=== PATIENT | male | born 1935 | race Caucasian/White ===

== ENCOUNTER 2019-01-08 09:18 | Inpatient (IN) | payer OTHER ==
[~2019-01-08] VITALS: Ht 162.6 cm; Wt 73.6 kg
[2019-01-08 09:23] VITALS: Ht 162.6 cm; Wt 73.6 kg
[2019-01-08 09:57] LABS: BASOPHIL % 0.2 % (0-2); PLATELET COUNT 238 x10^3mcL (130-400); RED CELL DISTRIBUTION WIDTH 13.1 % (11.5-14.5)
[2019-01-08 10:08] LABS: CALCIUM 9.7 mg/dL (8.5-10.1); CARBON DIOXIDE 29.6 mmol/L (21-32); CHLORIDE SERUM 106 mmol/L (98-107); CREATININE SERUM 0.7 mg/dL (0.7-1.3); GLUCOSE SERUM 110 mg/dL (74-106); SODIUM SERUM 144 mmol/L (136-145)
[2019-01-08 10:12] LABS: ALBUMIN 3.7 g/dL (3.4-5.0); ALKALINE PHOSPHATASE 108 U/L (46-116); ALT/SGPT 29 U/L (16-63); AST/SGOT 22 U/L (15-37); BILIRUBIN TOTAL 0.58 mg/dL (0.20-1.00); TOTAL PROTEIN, SERUM 7.4 g/dL (6.4-8.2)
[2019-01-08 16:35] LABS: CHOLESTEROL/HDL RATIO 4.1; MAGNESIUM 1.9 mg/dL (1.8-2.4)
[2019-01-08 16:42] VITALS: BP 151/84
[2019-01-08 17:14] VITALS: BP 151/84
[2019-01-08 18:02] LABS: microscopic required? NO
[2019-01-08 18:23] LABS: UA SPECIFIC GRAVITY <=1.005 (1.005-1.035); urine erythrocyte NEGATIVE (NEGATIVE)
[2019-01-08 18:36] LABS: AMPHETAMINE QUAL UR NONE DETECTED (See below)
[2019-01-08 21:16] VITALS: BP 115/92
[2019-01-09 05:42] VITALS: BP 117/79
[2019-01-09 06:48] LABS: CALCIUM 10.3 mg/dL (8.5-10.1); CARBON DIOXIDE 31.1 mmol/L (21-32); CHLORIDE SERUM 103 mmol/L (98-107); CREATININE SERUM 0.9 mg/dL (0.7-1.3); GLUCOSE SERUM 144 mg/dL (74-106); POTASSIUM SERUM 4.6 mmol/L (3.5-5.1); SODIUM SERUM 139 mmol/L (136-145)
[2019-01-09 07:13] LABS: BASOPHIL % 0.1 % (0-2); PLATELET COUNT 257 x10^3mcL (130-400); RED CELL DISTRIBUTION WIDTH 13.4 % (11.5-14.5)
[2019-01-09 07:55] VITALS: BP 130/80
[2019-01-09 12:53] VITALS: BP 123/76
[2019-01-09 13:07] VITALS: BP 130/80
== END 2019-01-09 14:40 | disposition home or self-care (01) | DRG 190 ==
LOC: ED 09:18 → DU 15:27
PROVIDERS: ADMIT Internal Medicine
DX: J44.1 Chronic obstructive pulmonary disease with (acute) exacerbation (principal); I50.43 Acute on chronic combined systolic (congestive) and diastolic (congestive) heart failure; I11.0 Hypertensive heart disease with heart failure; I16.0 Hypertensive urgency; I05.0 Rheumatic mitral stenosis; I25.10 Atherosclerotic heart disease of native coronary artery without angina pectoris; E04.1 Nontoxic single thyroid nodule; Z87.891 Personal history of nicotine dependence; Z85.46 Personal history of malignant neoplasm of prostate; Z68.28 Body mass index [BMI] 28.0-28.9, adult
CPT/HCPCS: 83880; 90658; 90732; J1200; J1940; J2920; J7620; J7626; Q0092; Q9967

== ENCOUNTER 2019-01-27 10:06 | Emergency (ER) | payer OTHER ==
[~2019-01-27] VITALS: Ht 162.6 cm; Wt 75.3 kg
[2019-01-27 10:10] VITALS: Ht 162.6 cm; Wt 75.3 kg
[2019-01-27 11:09] LABS: BASOPHIL % 0.4 % (0-2); PLATELET COUNT 209 x10^3mcL (130-400); RED CELL DISTRIBUTION WIDTH 13.9 % (11.5-14.5)
[2019-01-27 11:12] LABS: CALCIUM 9.5 mg/dL (8.5-10.1); CARBON DIOXIDE 29.2 mmol/L (21-32); CHLORIDE SERUM 107 mmol/L (98-107); CREATININE SERUM 0.7 mg/dL (0.7-1.3); GLUCOSE SERUM 105 mg/dL (74-106); POTASSIUM SERUM 4.2 mmol/L (3.5-5.1); SODIUM SERUM 143 mmol/L (136-145)
[2019-01-27 11:17] LABS: ALKALINE PHOSPHATASE 110 U/L (46-116); ALT/SGPT 26 U/L (16-63); AST/SGOT 20 U/L (15-37); BILIRUBIN TOTAL 0.54 mg/dL (0.20-1.00); TOTAL PROTEIN, SERUM 7.1 g/dL (6.4-8.2)
[2019-01-27 11:18] LABS: ALBUMIN 3.3 g/dL (3.4-5.0)
[2019-01-27 12:21] LABS: microscopic required? YES; urine erythrocyte NEGATIVE (NEGATIVE)
[2019-01-27 13:18] VITALS: BP 120/53
== END 2019-01-27 13:37 | disposition home or self-care (01) ==
LOC: ED 10:06
PROVIDERS: Emergency Medicine
DX: J44.1 Chronic obstructive pulmonary disease with (acute) exacerbation (principal); Z85.46 Personal history of malignant neoplasm of prostate
CPT/HCPCS: 36415; 87804; J7613; Q0092

== ENCOUNTER 2019-03-10 08:23 | Inpatient (IN) | payer OTHER ==
[~2019-03-10] VITALS: Ht 162.6 cm; Wt 72.6 kg
[2019-03-10 08:29] VITALS: Ht 162.6 cm; Wt 72.6 kg
--- NOTE | 2019-03-10 08:45 | NUR ---
OXYGEN TURNED OFF PER DR BERNSTEIN FOR ABG BLOOD DRAW
--- NOTE | 2019-03-10 08:50 | NUR ---
EKG IN PROGRESS
--- NOTE | 2019-03-10 08:50 | NUR ---
MSE COMPLETED BY DR BERNSTEIN
--- NOTE | 2019-03-10 08:53 | NUR ---
RT AT BEDSIDE FOR ABG BLOOD DRAW
--- NOTE | 2019-03-10 08:59 | NUR ---
LAB BLOOD DRAW AT BEDSIDE
[2019-03-10 09:30] LABS: ALBUMIN 3.4 g/dL (3.4-5.0); ALKALINE PHOSPHATASE 92 U/L (46-116); ALT/SGPT 40 U/L (16-63); AST/SGOT 56 U/L (15-37); BILIRUBIN TOTAL 1.19 mg/dL (0.20-1.00); CALCIUM 9.7 mg/dL (8.5-10.1); CARBON DIOXIDE 27.8 mmol/L (21-32); CHLORIDE SERUM 101 mmol/L (98-107); CHOLESTEROL 157 mg/dL (<200); CREATININE SERUM 0.7 mg/dL (0.7-1.3); GLUCOSE SERUM 116 mg/dL (74-106); HDL CHOLESTEROL 52 mg/dL (40-60); POTASSIUM SERUM 4.1 mmol/L (3.5-5.1); SODIUM SERUM 138 mmol/L (136-145); TOTAL PROTEIN, SERUM 6.9 g/dL (6.4-8.2)
--- NOTE | 2019-03-10 09:32 | NUR ---
PT SITTING UPRIGHT IN BED IN NO DISTRESS. VSS ON FULL CM WILL CONTINUE TO MONITOR
[2019-03-10 09:42] LABS: PLATELET COUNT 223 x10^3mcL (130-400); RED CELL DISTRIBUTION WIDTH 14.1 % (11.5-14.5)
[2019-03-10 10:05] LABS: BASOPHIL % 0 % (0-2)
--- NOTE | 2019-03-10 10:40 | NUR ---
SPOKE TO JEOVANNY FROM [employer] FOR EVAL FOR POSSIBLE ADMISSION.
[2019-03-10 11:58] VITALS: BP 127/67
--- NOTE | 2019-03-10 12:08 | NUR ---
REPORT GIVEN TO NATANAEL ANGEL RESUMING CARE OF PT IN TELE FLOOR
--- NOTE | 2019-03-10 12:25 | NUR ---
RECEIVED PT FROM ED NURSE, TRANSPORTED VIA BED. PT AAOX4, AMBULATORY W/O ASSISTANCE, GAIT AND BALANCE STEADY. REPORTED DULL PAIN TO BOTH LEGS. COMFORT MEASURES IMPLEMENTED. RESP EVEN AND UNLABORED ON NC 2L/MIN, EQUAL CHEST EXPANSION. EXPIRATORY WHEEZES ON AUSCULTATION. DENIES CHEST PAIN OR SOB, BUT REPORTS PRODUCTIVE COUGH W/ BLACKISH PHLEGM, NONE NOTED AT THIS TIME. ON TELE 13 SHOWING SINUS TACH W/ PVCS, HR: 103. IV TO LAC W/ NO SIGNS OF INFILTRATION. FINISHING IV ZITHROMAX, IVF INFUSING WELL. BED IN LOWEST POSITION AND CALL LIGHT WITHIN REACH. WILL CONTINUE TO MONITOR.
--- NOTE | 2019-03-10 12:25 | NUR ---
PT TRANSPORTED TO TELE FLOOR VIA GURNEY ON PORTABLE CM BY TIANA ANGEL AND [id number] EMT. PT IN NO DISTRESS. NATANAEL ANGEL RESUMING CARE OF PT
[2019-03-10 13:48] VITALS: BP 118/52
--- NOTE | 2019-03-10 15:25 | NUR ---
PT RESTING IN BED WATCHING TV. AAOX4. NO ACUTE DISTRESS NOTED. DENIES CHEST PAIN OR SOB AT THIS TIME. RESP EVEN AND UNLABORED ON NC 2L/MIN. IV TO LAC W/ NO SIGNS OF INFILTRATION, IVF INFUSING WELL. BED IN LOWEST POSITION AND CALL LIGHT WITHIN REACH. WILL ENDORSE TO ONCOMING NURSE.
[2019-03-10 16:58] VITALS: BP 126/83
[2019-03-10 19:30] VITALS: BP 122/68
--- NOTE | 2019-03-10 19:41 | NUR ---
AWAKE AND ALERT, ORIENTED TO NAME, PLACE, TIME AND SITUATION. SPEECH CLEAR AND APPROPRIATE. BREATHING EVEN AND UNLABORED ON 2LPM OF O2 VIA NC. NO WHEEZES HEARD AT THIS TIME. LUNG SOUNDS CLEAR. ABLE TO COMPLETE SENTENCES WITHOUT DIFFICULTY. STATED EXPECTORATES YELLOW SPUTUM. SINUS RHYTHM ON TELE. DENIES HAVING PAIN. SALINE LOCK TO LEFT AC FLUSHED WELL WITH 5ML NS. HOB ELEVATED 45 DEG.
--- NOTE | 2019-03-10 20:37 | NUR ---
URINE SPECIMEN SENT TO LAB
[2019-03-10 21:04] LABS: UA SPECIFIC GRAVITY <=1.005 (1.005-1.035); microscopic required? YES; urine erythrocyte 1+ (NEGATIVE)
--- NOTE | 2019-03-10 21:52 | NUR ---
AWAKE AND ALERT, WATCHING TV. HOB ELEVATED 40 DEG. BREATHING UNLABORED ON 2LPM OF O2 VIA NC. SINUS RHYTHM ON TELE. CALL LIGHT WITHIN EASY REACH.
--- NOTE | 2019-03-10 23:18 | NUR ---
STATED COUGH IS BOTHERING HIM KEEPING HIM AWAKE. ASKED FOR COUGH SYRUP. CALLED DR. ECHOLS WHO ORDERED PHENERGAN DM 10ML Q 4HRS PRN FOR COUGH.
--- NOTE | 2019-03-10 23:45 | NUR ---
PHENERGAN DM NOT AVAILABLE DURING NIGHT HOURS. ADMINISTRATOR OF HOME HEALTH CALLED, STATED HAD CHANGE OF RHYTHM TO BIGEMINY. VITAL SIGNS TAKEN, BP 143/78, DC 84, RR 18, O2 SAT 94% ON 2LPM OF O2 VIA NC. DENIES HAVING CHEST PAIN, CHEST DISCOMFORT, NAUSEA, LIGHTHEADINESS. CALLED DR. ECHOLS, INFORMED HIM OF CHANGE OF HEART RHYTHM, PT ASYMPTOMATIC. HE ORDERED EKG. ALSO INFORMED DR. ECHOLS PHENERGAN DM NOT AVAILABLE. HE ORDERED ROBITUSSIN DM 5ML PO Q 4HRS PRN FOR COUGH.
--- NOTE | 2019-03-10 23:49 | NUR ---
CN HOWER OF CHANGE IN HEART RHYTHM
[2019-03-10 23:56] VITALS: BP 143/78
--- NOTE | 2019-03-10 23:58 | NUR ---
EKG DONE READS SINUS RHYTHM W/ PVCS. PT REMAINS ASYMPTOMATIC.
--- NOTE | 2019-03-11 01:13 | NUR ---
EYES CLOSED, HOB KEPT ELEVATED 30 DEG. NO COUGHING NOTED AT THIS TIME. CALL LIGHT WITHIN EASY REACH. SINUS RHYTHM WITH PVCS NOTED.
--- NOTE | 2019-03-11 02:55 | NUR ---
EYES CLOSED, BREATHING UNLABORED. NO COUGHING NOTED AT THIS TIME. HOB KEPT ELEVATED 40 DEG. CALL LIGHT WITHIN EASY REACH.
[2019-03-11 04:58] VITALS: BP 144/87
[2019-03-11 05:06] VITALS: BP 111/66; BP 144/87
[2019-03-11 06:55] LABS: PLATELET COUNT 239 x10^3mcL (130-400); RED CELL DISTRIBUTION WIDTH 13.8 % (11.5-14.5)
[2019-03-11 07:07] LABS: BASOPHIL % 0 % (0-2)
--- NOTE | 2019-03-11 07:12 | NUR ---
AWAKE AND ALERT, WATCHING TV. STATED HE IS COMFORTABLE BREATHING WELL. STILL ON 2LPM OF O2 VIA NC. ENDORSED TO NURSE FRANK. CALL LIGHT WITHIN EASY REACH.
[2019-03-11 07:23] LABS: CALCIUM 10.5 mg/dL (8.5-10.1); CARBON DIOXIDE 24.9 mmol/L (21-32); CHLORIDE SERUM 104 mmol/L (98-107); CREATININE SERUM 0.6 mg/dL (0.7-1.3); GLUCOSE SERUM 165 mg/dL (74-106); POTASSIUM SERUM 4.3 mmol/L (3.5-5.1); SODIUM SERUM 139 mmol/L (136-145)
--- NOTE | 2019-03-11 07:25 | NUR ---
AAO X4.DENIES ANY PAIN/DISCOMFORT.LUNGS CLEAR.DENIES ANY SOB AT THE MOMENT.ON SR ON THE MONITOR.WITH OCCASSIONAL PVC'S.HR=81.IV SALINE LOCKED.CALL LIGHT WITHIN REACH INSTRUCTED TO CALL FOR ANY PAIN/DISCOMFORT.WILL CONTINUE TO MONITOR PT.
[2019-03-11 10:18] VITALS: BP 133/77
[2019-03-11 14:36] VITALS: BP 127/75
[2019-03-11 18:08] VITALS: BP 130/76
--- NOTE | 2019-03-11 18:10 | NUR ---
NO SIGNIFICANT CHANGE NOTED.WILL ENDORSE TO NEXT SHIFT.
--- NOTE | 2019-03-11 19:20 | NUR ---
REC'D PT FROM DAY NURSE. PT RESTING IN BED. AAOX4, SPEECH CLEAR, FOLLOWS COMMANDS. TELE 13. DENIES CP, DIZZINESS, OR PALPITATIONS. DENIES RESP DISTRESS OR SOB. BREATHING EVEN/UNLABORED ON 2L O2 VIA NC. C/O PRODUCTIVE COUGH WITH SCANT YELLOW SPUTUM. ABD SOFT/DISTENDED. NOTED UMBILICAL HERNIA, REDUCABLE. DENIES ABD PAIN, TENDERNESS, OR N/V. VOIDING FREELY. AMBULATORY. SKIN INTACT. IV TO LFA FLUSHED AND PATENT, SITE WNL. CALL LIGHT WITHIN REACH, BED AT LOWEST POSITION. WILL CONTINUE TO MONITOR.
[2019-03-11 19:58] VITALS: BP 142/82
--- NOTE | 2019-03-11 21:20 | NUR ---
ROBITUSSIN GIVEN PER ORDER FOR COMPLAINTS OF COUGH. WILL MONITOR FOR RELIEF.
--- NOTE | 2019-03-11 22:39 | NUR ---
REC'D CALL FROM TELE. PT HAD 4 BEAT RUN OF VTACH. PT RESTING IN BED WATCHING TV. ASYMPTOMATIC. DENIES ANY CP, PALPITATIONS, OR SOB. TELE 13 CURRENTLY READING NSR WITH PVC'S. HR 83. CHARGE NURSE MADE AWARE. WILL CONTINUE TO MONITOR.
--- NOTE | 2019-03-11 22:48 | NUR ---
DR. ECHOLS MADE AWARE OF 4 BEAT RUN OF [facility], ASYMPTOMATIC. NO CHANGES IN ORDERS AT THIS TIME.
--- NOTE | 2019-03-12 01:09 | NUR ---
PT RESTING IN BED WITH EYES CLOSED. LAYING ON L SIDE. NO SIGNS OF DISTRESS NOTED. BREATHING EVEN/UNLABORED ON 2L O2 VIA NC. CALL LIGHT WITHIN REACH, BED AT LOWEST POSITION. WILL CONTINUE TO MONITOR.
--- NOTE | 2019-03-12 05:17 | NUR ---
PT AWAKE AND RESTING IN BED WATCHING TV. C/O COUGH. ROBITUSSIN GIVEN PER ORDER. DENIES RESP DISTRESS OR SOB. BREATHING EVEN/UNLABORED ON 2L O2 VIA NC, SPO2 95%. NC REMOVED, SPO2 93-94%. NO SIGNIFICANT CHANGES DURING SHIFT. CALL LIGHT WITHIN REACH, BED AT LOWEST POSITION. WILL ENDORSE TO DAY NURSE.
[2019-03-12 05:21] VITALS: BP 120/70
[2019-03-12 05:41] LABS: BASOPHIL % 0.1 % (0-2); PLATELET COUNT 300 x10^3mcL (130-400); RED CELL DISTRIBUTION WIDTH 14.2 % (11.5-14.5)
[2019-03-12 05:58] LABS: CALCIUM 10.6 mg/dL (8.5-10.1); CHLORIDE SERUM 102 mmol/L (98-107); CREATININE SERUM 0.7 mg/dL (0.7-1.3); GLUCOSE SERUM 145 mg/dL (74-106); POTASSIUM SERUM 4.2 mmol/L (3.5-5.1); SODIUM SERUM 139 mmol/L (136-145)
--- NOTE | 2019-03-12 07:20 | NUR ---
RECEIVED PATIENT FROM JEANNE HOGAN, PATIENT IN BED. NO COMPLAINTS OF PAIN. DENIES COUGH AT THIS TIME. ASKED ABOUT PLAN OF CARE TODAY, WILL FU Tarun KUMAR WHEN HE COMES IN. CALL LIGHT IN REACH AT THIS TIME.
[2019-03-12 09:28] VITALS: BP 136/89
--- NOTE | 2019-03-12 09:29 | NUR ---
NOTIFIED BY GUT PULLER JOANN THAT PATIENT IS HAVING RUNS OF TRIGEMINY, BIGEMINY, AND NON SUSTAINING V-TACH. NOTIFIED CHARGE NURSE TESSIE. PATIENT CURRENTLY IN BED WITH NO SIGNS OF CP, DIZZINESS. VS STABLE, HR 84, BP 115/78, O2 SAT 93% ON ROOM AIR. WILL NOTFIY DR BOSE. CALL LIGHT IN REACH.
--- NOTE | 2019-03-12 12:03 | NUR ---
PATIENT IN BED RESTING, NO COMPLAINTS OF PAIN OR SOB. WILL CONTINUE TO MONITOR AND WAIT FOR DR KUMAR TO SEE PATIENT. CALL LIGHT IN REACH.
[2019-03-12 12:27] VITALS: BP 136/74
--- NOTE | 2019-03-12 14:22 | NUR ---
DR GILLETTE IN TO SEE PATIENT AND UPDATE ABOUT PLAN OF CARE. DR GILLETTE NOTIFIED OF PATIENT PVCs & EPISODE OF V TACH. INFORMED PATIENT THAT HE MAY BE DISCHARGED TOMORROW DEPENDING ON TOMORROWS AM LABS. CALL LIGHT IN REACH, FRIEND AT BEDSIDE.
--- NOTE | 2019-03-12 15:53 | NUR ---
PATIENT IN BED AT THIS TIME, NO SIGNS OF PAIN OR SOB. CALL LIGHT IN REACH.
[2019-03-12 17:52] VITALS: BP 131/69
--- NOTE | 2019-03-12 18:54 | NUR ---
PATIENT IN BED RESTING, NO SIGNS OF PAIN OR SOB. WILL ENDORSE TO ONCOMING NURSE. CALL LIGHT IN REACH.
--- NOTE | 2019-03-12 19:10 | NUR ---
REC'D PT FROM DAY NURSE. PT RESTING IN BED. AAOX4, SPEECH CLEAR, FOLLOWS COMMANDS. TELE 13. DENIES CP, DIZZINESS, OR PALPITATIONS. DENIES RESP DISTRESS OR SOB. BREATHING EVEN/UNLABORED ON RA, SPO2 92%. REPORTS PRODUCTIVE COUGH AT TIMES WITH SCANT YELLOW SPUTUM. ABD SOFT/ROUND. UMBILICAL HERNIA NOTED, REDUCABLE. DENIES ABD PAIN, TENDERNESS, OR N/V. REPORTS LAST BM YESTERDAY. VOIDING FREELY USING URINAL. AMBULATORY. SKIN INTACT. IV TO LFA FLUSHED AND PATENT, SITE WNL. CALL LIGHT WITHIN REACH, BED AT LOWEST POSITION. WILL CONTINUE TO MONITOR.
[2019-03-12 19:50] VITALS: BP 130/81
--- NOTE | 2019-03-13 00:51 | NUR ---
PT RESTING IN BED WITH EYES CLOSED. LAYING ON L SIDE. NO SIGNS OF DISTRESS NOTED. BREATHING EVEN/UNLABORED ON RA. CALL LIGHT WITHIN REACH, BED AT LOWEST POSITION. WILL CONTINUE TO MONITOR.
--- NOTE | 2019-03-13 05:32 | NUR ---
PT RESTING IN BED AWAKE. C/O COUGH. ROBITUSSIN GIVEN PER ORDER. BREATHING EVEN/UNLABORED ON RA, SPO2 93%. NO OTHER COMPLAINTS. DENIES SOB OR CP. NO SIGNIFICANT CHANGES DURING SHIFT. CALL LIGHT WITHIN REACH, BED AT LOWEST POSITION. POSSIBLE D/C TODAY. WILL ENDORSE TO DAY NURSE.
[2019-03-13 05:59] VITALS: BP 141/76
[2019-03-13 07:02] LABS: PLATELET COUNT 313 x10^3mcL (130-400)
[2019-03-13 07:11] LABS: BASOPHIL % 0 % (0-2)
[2019-03-13 07:45] LABS: ALKALINE PHOSPHATASE 89 U/L (46-116); ALT/SGPT 223 U/L (16-63); AST/SGOT 111 U/L (15-37); BILIRUBIN TOTAL 0.3 mg/dL (0.20-1.00); CALCIUM 10.1 mg/dL (8.5-10.1); CARBON DIOXIDE 26.4 mmol/L (21-32); CHLORIDE SERUM 104 mmol/L (98-107); CREATININE SERUM 0.7 mg/dL (0.7-1.3); GLUCOSE SERUM 123 mg/dL (74-106); MAGNESIUM 2.2 mg/dL (1.8-2.4); PHOSPHOROUS 3.4 mg/dL (2.5-4.9); POTASSIUM SERUM 4.1 mmol/L (3.5-5.1); SODIUM SERUM 140 mmol/L (136-145)
--- NOTE | 2019-03-13 07:45 | NUR ---
PATIENT RESTING IN BED. NO ACUTE DISTRESS NOTED. PATIENT DENIES SOB, ON ROOM AIR. UMBILICAL HERNIA NOTED. PATIENT DENIES PAIN. TELE MONITOR IN PLACE. PATIENT IS AMBULATORY WITH NO ASSIST. IV TO LFA SALINE LOCK. NO S/S OF INFILTRATION. CALL LIGHT WITHIN REACH, BED IN LOW POSITION, WILL CONTINUE TO MONITOR FOR CHANGES.
[2019-03-13 07:50] LABS: ALBUMIN 2.9 g/dL (3.4-5.0)
--- NOTE | 2019-03-13 09:15 | NUR ---
PATIENT AMBULATING HALLWAYS, NO ACUTE DISTRESS NOTED. PATIENT DENIES SOB, STEADY GAIT NOTED. WILL CONTINUE TO MONITOR PATIENT.
[2019-03-13 09:36] VITALS: BP 152/86
--- NOTE | 2019-03-13 10:45 | NUR ---
PATIENT IV TO LFA BECAME IN FILTRATED, ERYTHEMA AND EDEMA NOTED. IV TO LFA REMOVED, CATH INTACT. ICE APPLIED TO REDUCE EDEMA. NEW IV INSERTED TO THE LEFT HAND 20G, IV SITE CDI, AND PATENT. CALL LIGHT WITHIN REACH, BED INLOW POSITION, WILL CONTINUE TO MONITOR PATIENT.
[2019-03-13 15:29] VITALS: BP 152/86
--- NOTE | 2019-03-13 16:30 | NUR ---
PATIENT WAS D/C HOME. PATIENT TAKEN DOWN VIA WHEELCHAIR BY RN. TELE MONITOR AND ARMBANDS REMOVED. IV TO LEFT HAND REMOVED, CATH INTACT. NO ACUTE DISTRESS NOTED THROUGHOUT SHIFT, PATIENT IS STABLE UPON D/C. PATIENT RECEIVED COPY OF D/C INSTRUCTIONS AND D/C PESCRIPTIONS. PATIENT UNDERSTANDS AND AGREES WITH D/C PLAN AND INSTRUCTIONS, INCLUDING MEDS AND FOLLOW UP CARE. PATIENT UNDERSTAND THAT HE IS TO FOLLOW UP WITH PCP TOMORROW 03/14/19. ALL QUESTIONS AND CONCERNS ADDRESSED. PATIENT TOOK ALL PERSONAL BELONGINGS.
== END 2019-03-13 16:45 | disposition home or self-care (01) | DRG 190 ==
LOC: ED 08:23 → DU 11:37
PROVIDERS: Emergency Medicine; Internal Medicine; ADMIT Internal Medicine
DX: J44.1 Chronic obstructive pulmonary disease with (acute) exacerbation (principal); J96.01 Acute respiratory failure with hypoxia; N18.6 End stage renal disease; I12.0 Hypertensive chronic kidney disease with stage 5 chronic kidney disease or end stage renal disease; N40.0 Benign prostatic hyperplasia without lower urinary tract symptoms; I25.10 Atherosclerotic heart disease of native coronary artery without angina pectoris; Z68.28 Body mass index [BMI] 28.0-28.9, adult; Z87.891 Personal history of nicotine dependence
CPT/HCPCS: 36600; 83880; 87804; J0456; J0696; J1644; J2920; J2930; J7050; J7613; J7620; J7626; J7644; Q0092

== ENCOUNTER 2019-03-14 09:55 | Inpatient (IN) | payer OTHER ==
[~2019-03-14] VITALS: Ht 165.1 cm; Wt 74.4 kg
--- NOTE | 2019-03-14 10:02 | NUR ---
PT SENT TO LOBBY TO WAIT FOR AVAILABLE BED. ALERT AND ORIENTED WITH NO DISTRESS NOTED
--- NOTE | 2019-03-14 10:22 | NUR ---
AWAKE ALERT OREINTED,SPEAKS IN FULL SENTENCES,WAS DISCHARGED FROM [facility] YESTERDAY, STATED ALL NIGHT HAD SOB WITH COUGHING C/O LT UPPER CHEST SHOULDER PAIN,
--- NOTE | 2019-03-14 10:43 | NUR ---
IV ESTABLISHED, BLOOD DRAWN ,RESP. THERAPIST IN ER FOR BREATHING TREATMENT,
[2019-03-14 10:53] LABS: BASOPHIL % 0.6 % (0-2); PLATELET COUNT 325 x10^3mcL (130-400); RED CELL DISTRIBUTION WIDTH 14.1 % (11.5-14.5)
[2019-03-14 11:14] LABS: CALCIUM 9.8 mg/dL (8.5-10.1); CARBON DIOXIDE 26.2 mmol/L (21-32); CHLORIDE SERUM 104 mmol/L (98-107); CHOLESTEROL 168 mg/dL (<200); CREATININE SERUM 0.8 mg/dL (0.7-1.3); HDL CHOLESTEROL 39 mg/dL (40-60); LIPASE 106 IU/L (73-393); POTASSIUM SERUM 4.2 mmol/L (3.5-5.1); SODIUM SERUM 139 mmol/L (136-145); T4(THYROXINE) 10.7 ug/dL (4.7-13.3)
--- NOTE | 2019-03-14 11:25 | NUR ---
PRE-TX PEAK FLOW 210 L/MIN, POST-TX PEAK FLOW 230 L/MIN.
[2019-03-14 11:32] LABS: GLUCOSE SERUM 112 mg/dL (74-106)
--- NOTE | 2019-03-14 12:15 | NUR ---
RESP. EASY SPEAKS FULL SENTENCES, PEDIATRIC ANESTHESIOLOGIST SR WITH OCCASIONAL PVCS LESS THAN BEFORE,
[2019-03-14 12:19] LABS: microscopic required? NO
[2019-03-14 12:42] LABS: AMPHETAMINE QUAL UR NONE DETECTED (See below)
[2019-03-14 14:23] LABS: UA SPECIFIC GRAVITY 1.015 (1.005-1.035)
[2019-03-14 14:24] LABS: urine erythrocyte NEGATIVE (NEGATIVE)
--- NOTE | 2019-03-14 14:33 | NUR ---
HAD HIS LUNCH AND TOLERATED, CLOTH CUTTING MACHINE OPERATOR IN SR WITH OCCASIONAL PVCS
--- NOTE | 2019-03-14 14:34 | NUR ---
RESPIRATION EASY NO DISTRESS NOTED
[2019-03-14 17:09] VITALS: BP 155/82
--- NOTE | 2019-03-14 17:12 | NUR ---
RECEIVED PT FROM ED VIA MAYNOR. ORIENTED PT TO ROOM AND SURROUNDINGS. IV NOTED TO RAC PATENT AND INTACT. TELE 22 PLACED ON PT READING SR WITH PVC. INSTRUCTED PT ON THE USE OF CALL LIGHT FOR ASSISTANCE. ENDORSED PT TO PRIMARY NURSE GAVIN
[2019-03-14 17:42] VITALS: BP 155/82
--- NOTE | 2019-03-14 19:48 | NUR ---
PT SEEN, SITTING UP ON THE CHAIR, ALERT AND ORIENTED, DENIES HEADACHE OR DIZZINESS, BREATHING EVEN AND UNLABORED, NO SOB, LUNG SOUNDS CLEAR BUT DIMINISHED AT BASE, ON ROOM AIR WITH NO RESP DISTRESS NOTED, ON TELE#22 NSR-PVC'S, DENIES CHEST PAIN, SL TO RAC, PULSES PALPABLE, NO EDEMA NOTED, AMBULATORY WITH STEADY GAIT, ABD ROUND AND SOFT WITH ACTIVE BS, NO BM AT THIS TIME, DENIES ABD PAIN, VOIDING FREELY, NO DISTRESS NOTED, WILL KEEP TO MONITOR.
--- NOTE | 2019-03-14 19:55 | NUR ---
PT TOLERATED TREATMENT WELL, CARE ENDORSED TO AUTOMOTIVE SHOP FOREMAN NURSE
[2019-03-14 21:40] VITALS: BP 110/76
--- NOTE | 2019-03-15 06:07 | NUR ---
PT AWAKE AND RESTING IN BED, SLEPT MOST OF NIGHT, BREATHING EVEN AND UNLABORED ON ROOM AIR WITH NO RESP DISTRESS NOTED, DENIES CHEST PAIN SINCE BEGINNING OF NIGHT, SL TO RAC, NO DISTRESS NOTED, WILL KEEP TO MONITOR.
[2019-03-15 06:25] VITALS: BP 128/83
[2019-03-15 06:26] LABS: BASOPHIL % 0.1 % (0-2); PLATELET COUNT 333 x10^3mcL (130-400); RED CELL DISTRIBUTION WIDTH 14.2 % (11.5-14.5)
[2019-03-15 06:40] LABS: CALCIUM 9.7 mg/dL (8.5-10.1); CARBON DIOXIDE 26.2 mmol/L (21-32); CHLORIDE SERUM 102 mmol/L (98-107); CREATININE SERUM 0.7 mg/dL (0.7-1.3); GLUCOSE SERUM 139 mg/dL (74-106); POTASSIUM SERUM 4.4 mmol/L (3.5-5.1); SODIUM SERUM 138 mmol/L (136-145)
--- NOTE | 2019-03-15 07:15 | NUR ---
BEDSIDE [facility], ALL QUESTIONS ANSWERED AND CONCERNS ADDRESSED.
--- NOTE | 2019-03-15 08:00 | NUR ---
AWAKE,ALERT AND ORIENTED DENIED ANY PAIN AT THIS TIME. CALL LIGHT W/ IN REACH NO ACUTE DISTRESS NOTED. ABLE TO AMBULATE IN THE BATHROOM AND VOIDING WELL WILL CONT. PLAN OF CARE.
[2019-03-15 08:13] VITALS: BP 131/60
[2019-03-15 12:03] VITALS: BP 134/65
--- NOTE | 2019-03-15 14:00 | NUR ---
PT. AMBULATED ARROUND IN OL[place] WAY NO ACUTE DISTRESS NOTED.
[2019-03-15 16:32] VITALS: BP 118/66
--- NOTE | 2019-03-15 17:04 | NUR ---
CALL NOTIFIED STRESS TEST RESULT-UNREMARKABLE STUDY WITHOUT PERFUSION DEFECTS TO SUGGEST INFARCT OR ISCHEMIA, EF 65%; PER CARDIO PATIENT MAY GO HOME FROM CARDIO STANDPOINT. NO ORDERS.
--- NOTE | 2019-03-15 18:52 | NUR ---
DENIES PAIN THE WHOLE DAY, NO ACUTE RESP. DISTRESS NOTED.CALL LIGHT W/ IN REACH.
--- NOTE | 2019-03-15 19:54 | NUR ---
RECEIVED PT FROM PREVIOUS SHIFT. AAO. MEDSURG. DENIES HEADACHE/DIZZINESS. DENIES PAIN. SPEECH CLEAR. DENIES CP. BREATHING E/U ON RA, DENIES SOB. NO S/S ACUTE DISTRESS. DENIES N/V. IV SITE CDI, SALINE-LOCKED. SKIN DRY/INTACT. PT AMBULATORY WITH STEADY GAIT. CALL LIGHR WITHIN REACH. WILL CONTINUE TO MONITOR.
[2019-03-15 21:21] VITALS: BP 112/69
--- NOTE | 2019-03-15 21:56 | NUR ---
PT AMBULATING AROUND HALLS. GAIT SLOW AND STEADY. NO S/S ACUTE DISTRESS. DENIES PAIN. WILL CONTINUE TO MONITOR.
--- NOTE | 2019-03-16 01:01 | NUR ---
PT RESTING IN BED WITH EYES CLOSED. EASILY AROUSABLE. NO INDICATIONS OF PAIN NOTED. RESPIRATIONS E/U. CALL LIGHT WITHIN REACH. WILL CONTINUE TO MONITOR.
[2019-03-16 05:42] VITALS: BP 138/66
--- NOTE | 2019-03-16 06:06 | NUR ---
PT HAD RESTFUL NIGHT. AROUSABLE TO VERBAL STIMULI. DENIES PAIN. NO S/S ACUTE DISTRESS. ALL NEEDS MET AND ATTENDED TO. NO CHANGES OVERNIGHT. CALL LIGHT WITHIN REACH. WILL ENDORSE CARE TO ONCOMING SHIFT.
[2019-03-16 06:31] LABS: PLATELET COUNT 343 x10^3mcL (130-400); RED CELL DISTRIBUTION WIDTH 14.2 % (11.5-14.5)
[2019-03-16 06:55] LABS: CALCIUM 10.3 mg/dL (8.5-10.1); CARBON DIOXIDE 29.1 mmol/L (21-32); CHLORIDE SERUM 103 mmol/L (98-107); CREATININE SERUM 0.8 mg/dL (0.7-1.3); GLUCOSE SERUM 129 mg/dL (74-106); POTASSIUM SERUM 4.8 mmol/L (3.5-5.1); SODIUM SERUM 141 mmol/L (136-145)
--- NOTE | 2019-03-16 07:14 | NUR ---
RECEIVED REPORT FROM JEFFERSON ANGEL. PT SLEEPING COMFORTABLY IN BED. IV TO RAC IS PATENT AND INTACT. NO REDNESS OR PAIN. TELE # [address] NO INDICATION OF CHEST PAIN. PT ON ROOM AIR. NO DISTRESS NOTED. ALL QUESTIONS AND CONCERNS ADDRESSED.
--- NOTE | 2019-03-16 09:04 | NUR ---
IN TO SEE PATIENT AND ADMINISTER MEDICATION (SEE eMAR). PT SITTING COMFORTABLY IN CHAIR. ALL NEEDS MET.
[2019-03-16 10:20] VITALS: BP 137/60
[2019-03-16 11:30] LABS: BAND NEUTROPHIL 0 % (0-10); BASOPHIL 0 % (0-2); MONOCYTE 3 % (0-7); SEGMENTED NEUTROPHILS 91 % (37-75)
[2019-03-16 11:32] LABS: rbc morphology (normal/abnorm) ABNORMAL (NORMAL)
[2019-03-16 11:33] LABS: PLATELET MORPHOLOGY PLATELETS INCREASED
--- NOTE | 2019-03-16 12:02 | NUR ---
IN TO SEE PATIENT AND ADMINISTER MEDICATION (SEE eMAR). PT CAME IN FROM AMBULATING IN THE [place] AND SAT COMFORTABLY IN CHAIR TO RECEIEVE MEDICATION. ALL OTHER NEEDS MET.
[2019-03-16 13:20] VITALS: BP 136/82
--- NOTE | 2019-03-16 15:22 | NUR ---
IN TO SEE PATIENT AND ASSESS NEEDS AFTER LUNCH. PT SLEEPING COMFORTABLY IN BED. NO NEEDS IDENTIFIED.
--- NOTE | 2019-03-16 17:57 | NUR ---
IN TO SEE PATIENT AND ADMINISTER MEDICATION (SEE eMAR). PT SITTING COMFORTABLY IN CHAIR EATING DINNER. ALL NEEDS MET.
[2019-03-16 18:12] VITALS: BP 100/74
--- NOTE | 2019-03-16 19:17 | NUR ---
REPORT GIVEN TO JEAN-CLAUDE ANGEL. PT SITTING COMFORTABLY IN CHAIR WATCHING TELEVISION. ALL NEEDS MET. ALL QUESTIONS AND CONCERNS ADDRESSED. ALL CARES ENDORSED.
--- NOTE | 2019-03-16 19:30 | NUR ---
RECIEVED PATIENT AT START OF SHIFT A/O X4. ON TELE MONITOR 22 NSR 88. NO SOB ON RA. LUNGS CTAB. DENIES PAIN. IV SALINE LOCKED TO RAC. INTACT AND PATENT. CALL LIGHT AND BEDSIDE TABLE WITHIN REACH. PATIENT SITTING IN CHAIR AT BEDSIDE. WILL CONTINUE TO MONITOR.
[2019-03-16 21:06] VITALS: BP 133/68
--- NOTE | 2019-03-17 01:00 | NUR ---
PATIENT'S EYES ARE CLOSED, BREATHS EVEN. NO ACUTE CHANGES.
--- NOTE | 2019-03-17 06:37 | NUR ---
NO SIGNIFICANT EVENTS THIS SHIFT. IV INFUSING WELL. PATIENT SLEPT WELL THROUGH SHIFT. CALL LIGHT WITHIN REACH. WILL ENDORSE CARE TO MORNING NURSE.
--- NOTE | 2019-03-17 07:30 | NUR ---
PATIENT RESTING IN BED. NO ACUTE DISTRESS NOTED. PATIENT ON ROOM AIR, DENIES SOB. TELE MONITOR IN PLACE, DENIES CHEST PAIN. LUNG SOUNDS CTA. PATIENT IS AMBULATORY, NO WEAKNESS NOTED, STEADY GAIT. IV TO RAC SALINE LOCK, CDI AND PATENT. CALL LIGHT WITHIN REACH, BED IN LOW POSITION. WILL CONTINUE TO MONITOR PATIENT.
[2019-03-17 09:22] VITALS: BP 138/75
--- NOTE | 2019-03-17 11:00 | NUR ---
DR ECHOLS AWARE PATIENT HAD AN ELEVATED TWAVE, FREQUENT PVCS AND BIGEMINY PVCS. DR ECHOLS SAID PATIENT IS STILL OKAY TO GO HOME. WILL FOLLOW UP WITH PIT STEWARD FOR AT HOME NEBULIZER.
[2019-03-17 13:42] VITALS: BP 138/75
[2019-03-17 13:52] VITALS: BP 117/86
--- NOTE | 2019-03-17 14:49 | NUR ---
PATIENT SITTING UP AT BEDSIDE WATCHING TV. PATIENT DENIES SOB AT THIS TIME, ON ROOM AIR. PATIENT DENIES PAIN. NO ACUTE CHANGES NOTED, CALL LIGHT WITHIN REACH, WILL CONTINUE TO MONITOR PATIENT.
[2019-03-17 17:07] VITALS: BP 126/64
--- NOTE | 2019-03-17 17:45 | NUR ---
PER APARTMENT RENTAL AGENT NEBULIZER IS APPROVED AND IT WILL BE DELIVERED TO PATIENT ROOM TONIGHT. ATTENDING NURSE LIDIA MADE AWARE.
--- NOTE | 2019-03-17 19:00 | NUR ---
PATIENT RECEIVED D/C INSTRUCTIONS AND PRESCRIPTION. PATIENT UNDERSTANDS AND AGREES WITH POC, INCLUDING F/U WITH PCP. PATIENT RECEIVED NEBULIZER. RT NOTIFIED FOR NEBULIZER TEACHING. NIGHT NURSE WILL REMOVED IV, ARMBANDS, AND TELE PRIOR TO D/C. PATIENT IS STABLE, NO ACUTE CHANGES. ALL QUESTIONS AND CONCERNS ADDRESSED.
--- NOTE | 2019-03-17 20:00 | NUR ---
PT DISCHARGE TO HOME. PT TO DRIVE HOME. PT'S CAR ON SITE. AA&O X4. NO SOB ON ROOM AIR. NO C/O CHEST PAIN. NO DISTRESS NOTED. TELE#22 REMOVED AND RETURNED TO TRANSLITERATOR. IV REMOVED, CATHETER INTACT. NO BLEEDING. DISCHARGE PAPERS GIVEN TO PT. NEBULIZER RECEIVED. NEBULIZER TEACHING GIVEN BY ASHLI ARCHITECTURAL WOOD MODEL MAKER.
== END 2019-03-17 20:00 | disposition home or self-care (01) | DRG 190 ==
LOC: ED 09:55 → DU 15:58
PROVIDERS: Emergency Medicine; ADMIT Internal Medicine
DX: J44.1 Chronic obstructive pulmonary disease with (acute) exacerbation (principal); J18.9 Pneumonia, unspecified organism; J20.9 Acute bronchitis, unspecified; I71.2 Thoracic aortic aneurysm, without rupture; R73.9 Hyperglycemia, unspecified
CPT/HCPCS: 36600; 83880; 85378; 94150; J1644; J2920; J2930; J3475; J7030; J7613; J7620; J7626; J7644; Q0092; Q9967

== ENCOUNTER 2019-08-09 09:31 | Inpatient (IN) | payer OTHER ==
[~2019-08-09] VITALS: Ht 162.6 cm; Wt 78.9 kg
[2019-08-09 09:36] VITALS: Ht 162.6 cm; Wt 78.9 kg
[2019-08-09 10:10] LABS: BASOPHIL % 0.5 % (0-2); PLATELET COUNT 222 x10^3mcL (130-400); RED CELL DISTRIBUTION WIDTH 13.9 % (11.5-14.5)
[2019-08-09 10:15] LABS: CALCIUM 9.5 mg/dL (8.5-10.1); CARBON DIOXIDE 30.8 mmol/L (21-32); CHLORIDE SERUM 104 mmol/L (98-107); CREATININE SERUM 0.8 mg/dL (0.7-1.3); GLUCOSE SERUM 116 mg/dL (74-106); POTASSIUM SERUM 4.2 mmol/L (3.5-5.1); SODIUM SERUM 143 mmol/L (136-145)
[2019-08-09 10:20] LABS: ALBUMIN 3.9 g/dL (3.4-5.0); ALKALINE PHOSPHATASE 111 U/L (46-116); ALT/SGPT 31 U/L (16-63); AST/SGOT 28 U/L (15-37); BILIRUBIN TOTAL 0.5 mg/dL (0.20-1.00); TOTAL PROTEIN, SERUM 7.6 g/dL (6.4-8.2)
[2019-08-09] MEDS ORDERED: VENTOLIN H0.09 MG/A1 INH (12:16)
[2019-08-09 14:26] VITALS: BP 160/92
[2019-08-09 15:41] VITALS: BP 160/92
[2019-08-09 20:37] VITALS: BP 148/86
[2019-08-10 08:16] VITALS: BP 140/82
[2019-08-10 12:22] VITALS: BP 134/83
[2019-08-10 16:26] VITALS: BP 159/81
[2019-08-10 20:58] VITALS: BP 132/82
[2019-08-11 05:30] VITALS: BP 144/76
[2019-08-11 07:05] LABS: PLATELET COUNT 232 x10^3mcL (130-400)
[2019-08-11 07:19] LABS: CALCIUM 10.2 mg/dL (8.5-10.1); CARBON DIOXIDE 26.8 mmol/L (21-32); CHLORIDE SERUM 102 mmol/L (98-107); CREATININE SERUM 0.8 mg/dL (0.7-1.3); GLUCOSE SERUM 129 mg/dL (74-106); POTASSIUM SERUM 4.2 mmol/L (3.5-5.1); SODIUM SERUM 142 mmol/L (136-145)
[2019-08-11 08:02] LABS: BASOPHIL % 0 % (0-2); RED CELL DISTRIBUTION WIDTH 14.9 % (11.5-14.5)
[2019-08-11 08:56] VITALS: BP 137/82
[2019-08-11 13:30] VITALS: BP 139/82
[2019-08-11 16:59] VITALS: BP 135/81
[2019-08-11 20:06] VITALS: BP 130/87
[2019-08-11 20:29] VITALS: BP 128/86
[2019-08-12 05:08] VITALS: BP 128/83
[2019-08-12 06:28] LABS: PLATELET COUNT 216 x10^3mcL (130-400)
[2019-08-12 06:31] LABS: BASOPHIL % 0 % (0-2); RED CELL DISTRIBUTION WIDTH 14.6 % (11.5-14.5)
[2019-08-12 06:44] LABS: CALCIUM 9.9 mg/dL (8.5-10.1); CARBON DIOXIDE 27.2 mmol/L (21-32); CHLORIDE SERUM 107 mmol/L (98-107); CREATININE SERUM 0.7 mg/dL (0.7-1.3); GLUCOSE SERUM 142 mg/dL (74-106); POTASSIUM SERUM 4.1 mmol/L (3.5-5.1); SODIUM SERUM 144 mmol/L (136-145)
[2019-08-12 09:40] VITALS: BP 135/94
[2019-08-12 13:13] VITALS: BP 149/85
[2019-08-12 17:42] VITALS: BP 143/90
[2019-08-12 20:34] VITALS: BP 143/84
[2019-08-13 06:03] LABS: BASOPHIL % 0.2 % (0-2); PLATELET COUNT 218 x10^3mcL (130-400)
[2019-08-13 06:32] VITALS: BP 134/75
[2019-08-13 07:01] LABS: RED CELL DISTRIBUTION WIDTH 14.9 % (11.5-14.5)
[2019-08-13 08:19] LABS: SODIUM SERUM 144 mmol/L (136-145)
[2019-08-13 08:20] LABS: CARBON DIOXIDE 28.4 mmol/L (21-32); CHLORIDE SERUM 106 mmol/L (98-107); CREATININE SERUM 0.9 mg/dL (0.7-1.3); GLUCOSE SERUM 142 mg/dL (74-106); POTASSIUM SERUM 3.7 mmol/L (3.5-5.1)
[2019-08-13 08:39] VITALS: BP 125/82
[2019-08-13 12:46] VITALS: BP 155/83
[2019-08-13 16:06] VITALS: BP 132/95
[2019-08-13 21:54] VITALS: BP 146/84
[2019-08-14 05:37] VITALS: BP 151/76
[2019-08-14 07:16] LABS: BASOPHIL % 0.4 % (0-2); PLATELET COUNT 236 x10^3mcL (130-400)
[2019-08-14 07:17] LABS: RED CELL DISTRIBUTION WIDTH 14.8 % (11.5-14.5)
[2019-08-14 07:29] LABS: CALCIUM 10.1 mg/dL (8.5-10.1); CHLORIDE SERUM 105 mmol/L (98-107); CREATININE SERUM 0.6 mg/dL (0.7-1.3); GLUCOSE SERUM 142 mg/dL (74-106); POTASSIUM SERUM 3.8 mmol/L (3.5-5.1); SODIUM SERUM 142 mmol/L (136-145)
[2019-08-14 08:55] VITALS: BP 140/81
[2019-08-14 12:45] VITALS: BP 130/89
[2019-08-14 16:52] VITALS: BP 131/88
[2019-08-14 20:42] VITALS: BP 131/81
[2019-08-15 05:37] VITALS: BP 146/80
[2019-08-15 08:40] VITALS: BP 156/92
[2019-08-15 12:41] VITALS: BP 144/87
[2019-08-15 16:46] VITALS: BP 119/72
[2019-08-15 19:30] VITALS: BP 118/74
[2019-08-16 04:11] VITALS: BP 149/87
[2019-08-16 07:48] LABS: CALCIUM 9.6 mg/dL (8.5-10.1); CHLORIDE SERUM 105 mmol/L (98-107); CREATININE SERUM 0.9 mg/dL (0.7-1.3); GLUCOSE SERUM 149 mg/dL (74-106); MAGNESIUM 2.3 mg/dL (1.8-2.4); PHOSPHOROUS 2.8 mg/dL (2.5-4.9); PLATELET COUNT 214 x10^3mcL (130-400); POTASSIUM SERUM 4.1 mmol/L (3.5-5.1); SODIUM SERUM 143 mmol/L (136-145)
[2019-08-16 08:25] LABS: BASOPHIL % 0 % (0-2); RED CELL DISTRIBUTION WIDTH 14.9 % (11.5-14.5)
[2019-08-16 09:01] VITALS: BP 144/96
[2019-08-16 13:18] VITALS: BP 157/95
[2019-08-16 20:16] VITALS: BP 157/90
[2019-08-17 05:47] VITALS: BP 151/83
[2019-08-17 06:24] LABS: PLATELET COUNT 198 x10^3mcL (130-400)
[2019-08-17 06:56] LABS: BASOPHIL % 0 % (0-2); RED CELL DISTRIBUTION WIDTH 15.1 % (11.5-14.5)
[2019-08-17 07:08] LABS: CALCIUM 9.2 mg/dL (8.5-10.1); CARBON DIOXIDE 33.4 mmol/L (21-32); CHLORIDE SERUM 105 mmol/L (98-107); CREATININE SERUM 0.8 mg/dL (0.7-1.3); GLUCOSE SERUM 131 mg/dL (74-106); POTASSIUM SERUM 4.7 mmol/L (3.5-5.1); SODIUM SERUM 144 mmol/L (136-145)
[2019-08-17 09:04] VITALS: BP 169/79
[2019-08-17 12:05] VITALS: BP 149/79
[2019-08-17 12:51] VITALS: BP 149/79
[2019-08-17 20:21] VITALS: BP 148/86
[2019-08-18 05:48] VITALS: BP 125/87
[2019-08-18 07:25] LABS: RED CELL DISTRIBUTION WIDTH 15.2 % (11.5-14.5)
[2019-08-18 07:54] LABS: CALCIUM 9.7 mg/dL (8.5-10.1); CARBON DIOXIDE 29.6 mmol/L (21-32); CHLORIDE SERUM 103 mmol/L (98-107); CREATININE SERUM 0.8 mg/dL (0.7-1.3); GLUCOSE SERUM 136 mg/dL (74-106); POTASSIUM SERUM 4.4 mmol/L (3.5-5.1); SODIUM SERUM 141 mmol/L (136-145)
[2019-08-18 09:11] VITALS: BP 127/77
[2019-08-18 09:23] LABS: MONOCYTE 14 % (0-7); SEGMENTED NEUTROPHILS 84 % (37-75)
[2019-08-18 09:24] LABS: rbc morphology (normal/abnorm) NORMAL (NORMAL)
[2019-08-18 10:47] LABS: PLATELET MORPHOLOGY PLATELETS DECREASED
[2019-08-18 11:10] LABS: PLATELET COUNT 49 x10^3mcL (130-400)
[2019-08-18 12:35] VITALS: BP 132/69
[2019-08-18 16:45] VITALS: BP 141/85
[2019-08-18 20:35] VITALS: BP 139/77
[2019-08-19 04:59] VITALS: BP 133/86
[2019-08-19 06:36] LABS: BASOPHIL % 0.1 % (0-2); PLATELET COUNT 161 x10^3mcL (130-400)
[2019-08-19 06:51] LABS: RED CELL DISTRIBUTION WIDTH 15.5 % (11.5-14.5)
[2019-08-19 06:57] LABS: CALCIUM 9.5 mg/dL (8.5-10.1); CARBON DIOXIDE 29.5 mmol/L (21-32); CHLORIDE SERUM 103 mmol/L (98-107); CREATININE SERUM 0.8 mg/dL (0.7-1.3); GLUCOSE SERUM 165 mg/dL (74-106); POTASSIUM SERUM 4.5 mmol/L (3.5-5.1); SODIUM SERUM 141 mmol/L (136-145)
[2019-08-19 08:52] VITALS: BP 138/85
[2019-08-19 13:39] VITALS: BP 150/87
[2019-08-19 17:02] VITALS: BP 155/67
[2019-08-19 21:01] VITALS: BP 129/82
[2019-08-20 06:03] VITALS: BP 143/87
[2019-08-20 09:32] VITALS: BP 133/66
[2019-08-20 13:40] VITALS: BP 126/61
[2019-08-20 16:15] VITALS: BP 123/69
[2019-08-20 17:21] VITALS: BP 123/69
[2019-08-20 19:10] VITALS: BP 128/65
[2019-08-21 06:11] VITALS: BP 102/66
[2019-08-21 06:20] LABS: PLATELET COUNT 198 x10^3mcL (130-400)
[2019-08-21 06:33] LABS: BASOPHIL % 0 % (0-2); RED CELL DISTRIBUTION WIDTH 15.6 % (11.5-14.5)
[2019-08-21 07:05] LABS: CALCIUM 9.1 mg/dL (8.5-10.1); CHLORIDE SERUM 104 mmol/L (98-107); CREATININE SERUM 0.8 mg/dL (0.7-1.3); GLUCOSE SERUM 137 mg/dL (74-106); POTASSIUM SERUM 4.8 mmol/L (3.5-5.1); SODIUM SERUM 141 mmol/L (136-145)
[2019-08-21 07:50] VITALS: BP 102/66
[2019-08-21 09:59] VITALS: BP 114/71
== END 2019-08-21 11:22 | disposition home health service (06) | DRG 189 ==
LOC: ED 09:31 → DU 11:09
PROVIDERS: Internal Medicine; ADMIT Internal Medicine
DX: J96.01 Acute respiratory failure with hypoxia (principal); J44.0 Chronic obstructive pulmonary disease with (acute) lower respiratory infection; J44.1 Chronic obstructive pulmonary disease with (acute) exacerbation; J93.83 Other pneumothorax; J20.9 Acute bronchitis, unspecified; I71.2 Thoracic aortic aneurysm, without rupture; I25.10 Atherosclerotic heart disease of native coronary artery without angina pectoris; Z68.28 Body mass index [BMI] 28.0-28.9, adult; Z79.51 Long term (current) use of inhaled steroids; Z85.46 Personal history of malignant neoplasm of prostate
CPT/HCPCS: 36600; 90658; 90732; 97116-GP; G0378; J1644; J1956; J2543; J2920; J2930; J3490; J7030; J7040; J7613; J7620; J7626; J7644; Q0092